=== PATIENT | female | born 1955 | race American Indian/Alaskan Native ===

== ENCOUNTER 2017-03-09 09:46 | Outpatient (CLI) | payer OTHER, MEDICARE ==
[2017-03-09 10:11] LABS: Hematocrit 37.3 % (30.3-42.9); Hemoglobin 12.5 gm/dl (10.1-14.3); Mean Corpuscular HGB Conc 34 % (30-34); Mean Corpuscular Hemoglobin 31 pg (28-32); Mean Corpuscular Volume 93 fl (79-97); Platelet Count 326 K/mm3 (140-440); Red Blood Count 3.99 M/mm3 (3.65-5.03); Red Cell Distribution Width 15.7 % (13.2-15.2); White Blood Count 8.2 K/mm3 (4.5-11.0)
[2017-03-09 10:37] LABS: Alanine Aminotransferase 10 units/L (7-56); Alkaline Phosphatase 90 units/L (35-129); Anion Gap 20 mmol/L; BUN/Creatinine Ratio 21.25; Bilirubin,Total 0.2 mg/dL (0.1-1.2); Blood Urea Nitrogen 17 mg/dL (7-17); Calcium 9.4 mg/dL (8.4-10.2); Carbon Dioxide 24 mmol/L (22-30); Chloride 100.7 mmol/L (98-107); Cholesterol 231 mg/dL (50-199); Glucose 139 mg/dL (65-100); HDL Cholesterol 51 mg/dL (40-59); LDL Cholesterol,Direct 128 mg/dL (50-130); Sodium 142 mmol/L (137-145); Triglycerides 263 mg/dL (2-149)
== END 2017-03-09 09:47 | disposition home or self-care (01) ==
LOC: LAB 09:46
PROVIDERS: ATTEND Specialist
DX: K30 Functional dyspepsia (principal)
CPT/HCPCS: 36415; 80053; 80061; 85027

== ENCOUNTER 2017-03-21 06:04 | Day surgery (SDC) | payer OTHER, MEDICARE ==
[2017-03-21] MEDS ORDERED: WATER FOR IRRIG STERILE IR ONE (07:15)
--- NOTE | 2017-03-21 07:51 | Anesthesia Day of Surgery ---
Anesthesia Day of Surgery - Day of Surgery Patient Examined: Yes Patient H&P Reviewed: Yes Patient is NPO: Yes
--- NOTE | 2017-03-21 07:51 | Anesthesia Consultation ---
Anesthesia Consult and Med Hx Date of service: 03/21/17 - Airway Anesthetic Teeth Evaluation: Good, Dentures (upper) Mallampati Class: Class II Intubation Access Assessment: Probably Good - Pulmonary Exam CTA: Yes - Cardiac Exam Cardiac Exam: RRR - Pre-Operative Health Status ASA Pre-Surgery Classification: ASA3 Proposed Anesthetic Plan: MAC - Pulmonary Hx Sleep Apnea: Yes (CPAP. Sleeping raised works better.) - Cardiovascular System Hx Hypertension: Yes - Central Nervous System Hx Back Pain: Yes (lower) - Gastrointestinal Hx Gastroesophageal Reflux Disease: Yes (controled with meds.)
[2017-03-21] MEDS ORDERED: NACL 0.9% 1000 ML 1,000 ML IV SCH (08:00)
[2017-03-21] MEDS ORDERED: DIPRIVAN 10 MG/ML IV ONE ×3 (08:17)
--- NOTE | 2017-03-21 09:10 | Operative Report ---
Operative Report Operative Report: DATE 03/21/2017 SURGERY: Upper endoscopy. SURGEON: Rodolfo Fleming M.D. NOZZLE TENDER: Seth Solis MD PRE OP DX: dyspepsia POST OP DX: 1. medium size hiatal hernia 2. gastric polyp (proximal body/lesser curve) TYPE OF ANESTHESIA: MAC. ESTIMATED BLOOD LOSS: None. COMPLICATIONS: None. SPECIMENS REMOVED: None. FINDINGS: 1. medium size hiatal hernia. 2. gastric polyp 3. Otherwise, normal esophagus, stomach and first portion of duodenum. INDICATIONS:INDICATION FOR PROCEDURE: Patient is a 61-year-old female with a long history of morbid obesity. She is planned to have a weight loss procedure and is here for preoperative planning EGD. PROCEDURE DETAILS: After consent was reviewed, patient was taken back to the operating room where patient was placed in the left lateral decubitus position and a bite block was placed in the mouth. After a time-out was called, MAC anesthesia was initiated. I then passed the endoscope into her oropharynx, into her esophagus, visualized the entire esophagus, which was all within normal limits. I then visualized the stomach and the first portion of the duodenum and there were no abnormalities I could clearly visualize. I then retroflexed the scope in the stomach and visualized the hiatus and I could see a medium size hiatal hernia. I then noticed a 5mm gastric polyp over the proximal body following the lesser curvature. Cold forceps biopsy was taken. I then desufflated the stomach and removed the endoscope. Patient tolerated procedure well and was transferred to recovery room in good and stable condition.
--- NOTE | 2017-03-21 09:12 | Discharge Summary ---
Providers - Providers Date of discharge: 03/21/17 Attending physician: JENN REYEZ Hospitalization Reason for admission: outpateint EGD Condition: Stable Procedures: EGD Disposition: DISCHARGED TO HOME OR SELFCARE Core Measure Documentation - Palliative Care Palliative Care/ Comfort Measures: Not Applicable - Core Measures Any of the following diagnoses?: none Exam - Physical Exam Narrative exam: unchanged from preop - Constitutional Vitals: Temp Pulse Resp BP Pulse Ox 97.7 F 81 13 124/79 100 03/21/17 09:00 03/21/17 09:00 03/21/17 09:00 03/21/17 09:00 03/21/17 09:00 Plan Activity: advance as tolerated Diet: low carbohydrate Follow up with: RAY BA [Other] - 7 Days
[2017-03-21 09:26] VITALS: BP 130/91
--- NOTE | 2017-03-21 15:06 | Post Anesthesia Evaluation ---
- Post Anesthesia Evaluation Patient Participated: Yes Airway Patent: Yes Stable Respiratory Function: Yes Nausea/Vomiting: No Temp > 96.8F: Yes Pain Manageable: Yes Adequeate Hydration: Yes Anesthesia Complications: No Block Receding Appropriately: Not Applicable Patient on Ventilator: No
== END 2017-03-21 06:05 | disposition home or self-care (01) ==
LOC: GIO 06:04
PROVIDERS: ATTEND Specialist
DX: D13.1 Benign neoplasm of stomach (principal); K44.9 Diaphragmatic hernia without obstruction or gangrene; K21.9 Gastro-esophageal reflux disease without esophagitis; I10 Essential (primary) hypertension; G47.33 Obstructive sleep apnea (adult) (pediatric); E78.00 Pure hypercholesterolemia, unspecified; M19.90 Unspecified osteoarthritis, unspecified site; E66.01 Morbid (severe) obesity due to excess calories; Z68.37 Body mass index [BMI] 37.0-37.9, adult; Z90.710 Acquired absence of both cervix and uterus; Z98.51 Tubal ligation status; Z79.899 Other long term (current) drug therapy
CPT/HCPCS: 43239; 88305; 88342; J2704; J7030

== ENCOUNTER 2017-03-28 09:45 | Inpatient (IN) | payer OTHER, MEDICARE ==
--- NOTE | 2017-03-23 11:20 | Anesthesia Consultation ---
Anesthesia Consult and Med Hx Date of service: 03/23/17 (Scheduled for Gastric Lap sleeve on 03/27/[address] Fleming) - Airway Anesthetic Teeth Evaluation: Dentures (upper) ROM Head & Neck: Adequate Mental/Hyoid Distance: Adequate Mallampati Class: Class II Intubation Access Assessment: Probably Good - Pulmonary Exam CTA: Yes - Cardiac Exam Cardiac Exam: RRR - Pre-Operative Health Status ASA Pre-Surgery Classification: ASA3 Proposed Anesthetic Plan: General - Pre-Anesthesia Comment Pre-Anesthesia Comments: No previous anesthesia complications. - Pulmonary Hx Asthma: No Hx Sleep Apnea: Yes (2016, unable to tolerate CPAP) - Cardiovascular System Hx Hypertension: Yes (1987) Hx Coronary Artery Disease: No - Central Nervous System Hx Seizures: No - Gastrointestinal Hx Gastroesophageal Reflux Disease: Yes (mild, food related) - Endocrine Hx Non-Insulin Dependent Diabetes: No - Other Systems Hx Obesity: Yes (BMI= 37)
[~2017-03-28 09:45] MED LIST: ANCEF/STERILE WATER 2 GM/20 ML 2 GM/20 ML SYRINGE IV NR; APRESOLINE IV PRN; FLAGYL 500 MG/100 ML 500 MG/100 ML BAG IV NR; LACTATED RINGERS 1,000 ML IV SCH; LOVENOX SUB-Q NR; MYLICON PO PRN; PEPCID IV NR; PEPCID PO NR; REGLAN IV PRN; TRANSDERM-SCOP TD SCH; VERSED IV NR
[2017-03-28] MEDS ORDERED: DILAUDID IV PRN ×2 (10:00→19:09)
[2017-03-28] MEDS ORDERED: NACL BACTERIOSTATIC INFILTRATI ONE (13:56)
[2017-03-28] MEDS: LACTATED RINGERS 1,000 ML IV SCH (14:10)
[2017-03-28] MEDS ORDERED: FLAGYL 500 MG/100 ML 500 MG/100 ML BAG IV NR (15:00)
[2017-03-28] MEDS ORDERED: XYLOCAINE 1% 20 mL ONE ×2 (15:26→17:13)
[2017-03-28] MEDS ORDERED: MARCAINE-EPI 0.5%-1:200,000 INFILTRATI ONE ×3 (15:26→18:01)
[2017-03-28 17:06] LABS: Bilirubin,Urine NEG (Negative); Blood,Urine NEG (Negative); Ketones,Urine NEG (Negative); Leukocyte Esterase,Urine NEG (Negative); Nitrite,Urine NEG (Negative); Protein,Urine <15 mg/dL mg/dL (Negative); Urobilinogen,Urine < 2.0 mg/dL (<2.0); WBC,Urine < 1.0 /HPF (0.0-6.0)
[2017-03-28] MEDS ORDERED: DIPRIVAN 10 MG/ML IV ONE (17:09)
[2017-03-28] MEDS ORDERED: SUBLIMAZE ONE (17:10)
[2017-03-28] MEDS ORDERED: ZEMURON IV ONE (17:46)
[2017-03-28] MEDS ORDERED: QUELICIN ONE (17:46)
[2017-03-28] MEDS ORDERED: XYLOCAINE MPF 2% ONE (17:46)
[2017-03-28] MEDS ORDERED: DECADRON ONE (17:46)
[2017-03-28] MEDS ORDERED: NACL 0.9% IR ONE ×2 (18:01)
[2017-03-28] MEDS ORDERED: XYLOCAINE 1% 20 mL INFILTRATI ONE (18:01)
[2017-03-28] MEDS ORDERED: ROBINUL ONE (18:17)
[2017-03-28] MEDS ORDERED: ZOFRAN ONE ×2 (18:17→19:19)
[2017-03-28] MEDS ORDERED: NEO SYNEPHRINE/NS Syringe(OR USE) IV ONE (18:30)
[2017-03-28] MEDS ORDERED: DILAUDID ONE (18:51)
--- NOTE | 2017-03-28 19:08 | Operative Report ---
Operative Report Operative Report: Operative Report DATE OF PROCEDURE: 03/28/2017 PREOPERATIVE DIAGNOSES: Morbid obesity, hiatal hernia POSTOPERATIVE DIAGNOSES: 1.same as pre-op SURGEON: Rodolfo Fleming MD SPECIAL EDUCATION TEACHERS: Adama Palma [facility] PROCEDURE: 1. laparoscopic sleeve gastrectomy 2. laparoscopic hiatal hernia repair ANESTHESIA: General. ESTIMATED BLOOD LOSS: <5 mL. COMPLICATIONS: None. SPECIMEN: Partial gastrectomy. FINDINGS: 1. hiatal hernia INDICATION FOR PROCEDURE: Patient is a 38-year-old female with a long history of morbid obesity. 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 She is here today for sleeve gastrectomy. PROCEDURE IN DETAIL: After consent was reviewed, patient was taken back to the operating room, where patient was placed supine on the bed with both arms out. The patient's legs were doubly strapped to the bed. Patient had a foot board in place. Patient had a body warmer placed by anesthesia. Patient was then prepped and draped in normal sterile surgical fashion. After a time-out was called, I made a stab incision in the LUQ and placed a Veress needle through this incision and insufflated the abdomen to 18 mmHg pressure. I then used a 5mm optiview trocar on the RUQ and under direct visualization access the abdominal cavity. No intraabdominal structure was injured. Then we placed 2 5mm LUQ trocars and a 15mm trocat through the umbilicus. Another 5mm trocar was placed subxiphoid I then placed the liver retractor through the subxiphoid port and placed the patient in full reverse Trendelenburg. The right and left crura were skeletonized accentuating a small hiatal hernia. An anterior cruraplasty was perfromed with a figure-of-8 stitch using surgidac suture to reapproximate the crura. I then identified the pylorus and then counted off 6cm from the pylorus. I then used a LigaSure cutting device to enter into the lesser sac. At that point and then I took down the short gastrics all the way up to the left vivian. Then I had anesthesia pass down a 36-Anguillan bougie along the lesser curvature of the stomach. I made sure everything else was out of the abdomen except the bougie. I then created my gastric sleeve using a 60-mm laparoscopic stapler. . The sleeve looked good without any twisting or torsion. I then had anesthesia to remove the bougie. Hemostasis was obtained along the staple line. I then used Tiseel along the entirety of the staple line and some on the liver. I then removed liver grasper and took it off the field. I then removed the stomach through the 15-mm port. I then desufflated the abdomen and removed all port sites. I then closed that fascia with a #1 PDS in a [id number] fashion.. I then closed the incisions with 4-0 Monocryl in subcuticular fashion. I then dressed the wounds with Steristrips, Telfa and Tegaderm. Patient tolerated the procedure well and was transferred to recovery room in good and stable condition.
[2017-03-28] MEDS ORDERED: TORADOL IV PRN (19:09)
[2017-03-28] MEDS ORDERED: ZOFRAN IV PRN (19:28)
[2017-03-28] MEDS: DILAUDID IV PRN ×3 (19:30→20:10)
--- NOTE | 2017-03-28 19:47 | Post Anesthesia Evaluation ---
- Post Anesthesia Evaluation Patient Participated: Yes Airway Patent: Yes Stable Respiratory Function: Yes Temp > 96.8F: Yes Pain Manageable: Yes Adequeate Hydration: Yes Anesthesia Complications: No Block Receding Appropriately: Not Applicable
[2017-03-29] MEDS: LACTATED RINGERS 1,000 ML IV SCH (08:20)
--- NOTE | 2017-03-29 09:17 | Admit Criteria Form ---
Admission Criteria Documentation: AMBULATORY SURGERY EXCEPTION CRITERIA Ambulatory Surgery Exception Criteria ( Place 'X' for any and all applicable criteria): Surgery or procedure performed on ambulatory basis may require inpatient stay for[A] ANY ONE of the following(1)(2)(3)(4)(5)(6)(7)(8)(9): [X] I. A preoperative situation, condition, or finding that warrants inpatient stay as indicated by ANY ONE of the following: [] a) Inpatient care needed because of severity of a disease or condition rather than the surgery (eg, severe cardiac or respiratory disease, severe infection) (15) (16 ) (17) (18) [] b) Emergent procedure (eg, angioplasty for acute ischemia)(19) [] c) Complex surgical approach or situation as indicated by ANY ONE of the following(3): [] i) Open approach needed instead of usual endoscopic, transcatheter, or other less invasive procedure [] ii) Difficult approach because of previous operation [] iii) Airway monitoring required after open neck procedures(20)(21) [] iv) Large mass requiring unusually extensive dissection [] v) Additional complicating feature requiring inpatient care (eg, drain management)(22(23): [X] d) Major surgery in a pt with high anesthetic risk as indicated by ANY ONE of the following (2)(3)(5)(7)(8): [X] i) ASA risk class III or higher (severe systemic disease impairing function) [D] [] ii) Advanced age (eg, older than 85 years)(14)(24) [] iii) Symptomatic heart failure(25) [] iv) Symptomatic asthma or COPD(8)(21) [] v) Morbid obesity with hemodynamic or respiratory problems(20)( 21)(26)(27) [] vi) Obstructive sleep apnea(20)(21) [] vii) Former premature infants who are younger than 60 weeks [] viii) High risk for severe postoperative abnormalities (eg, severe postoperative hypocalcemia after parathyroidectomy for severe hyperparathyroidism)(27)( 28) [] ix) Unstable angina(25) [] e) Drug-related risk requiring inpatient stay as indicated by ANY ONE of the following(5)(10)(14)(32)(33) [] i) Procedure requires discontinuing drugs or other therapy (eg , antiarrhythmic medication, antiseizure medication), which necessitates inpatient observation or treatment.(18)(31) [] ii) Major surgery and high risk drug use as indicated by ANY ONE of the following: [] 1) Active abuse of cocaine or similar drug [] 2) Monoamine oxidase inhibitor use [] 3) Other drug identified as posing risk [] f) Inadequate outpatient care situation as indicated by ANY ONE of the following(5)(10)(14)(32)(33) [] i) Patient lives remote from medical facility and procedure has urgent complication potential, and temporary nearby residence cannot be arranged [] ii) Patient will have postprocedure incapacitation and inadequate assistance at home, or alternative level of care cannot be arranged. [] iii) Patient will have long general anesthesia or procedure side effect resolution time, and competent person to stay with patient on first postoperative night at home or alternative level of care cannot be arranged. []iv) Other inadequate outpatient situation that cannot be handled by other means [] II. A perioperative event, condition, or finding that warrants inpatient stay as indicated by ANY ONE of the following (1)(2)(3): [] a) Inadequate physiologic recovery: cardiovascular, respiratory, or hemodynamic status not normal or near preoperative baseline(18) [] b) Hemodynamic instability [] c) Patient not alert with near normal or baseline mental status [] d) Temperature not normal or as expected and not appropriate for outpatient treatment of condition [] e) Ambulatory or appropriate activity level status not yet achieved post procedure [E](34)(35)(36) [] f) Operative site not appropriate (eg, unexpected or excessive drainage or bleeding) [] g) Postoperative effects not resolved or adequately managed (eg, significant pain or vomiting not appropriate for outpatient or next level of care)(10)(12) [] h) Complicating features requiring inpatient care as indicated by ANY ONE of the following(37): [] i) Severe complications of procedure (eg, bowel injury, airway compromise, vascular injury,severe hemorrhage) [] ii) Extensive (eg, dissection far beyond usual scope of procedure ) or prolonged (eg, 120 minutes beyond usual) surgery needed requiring inpatient postoperative care [] iii) Conversion to an open or complex procedure that requires inpatient care (eg, open vs laparoscopic cholecystectomy, abdominal vs vaginal hysterectomy)(38) [] iv) Comorbid condition or test result identified during or post procedure that requires inpatient care (7) [] v) Malignant hyperthermia(30) [] vi) Other complicating feature requiring inpatient care(22)(23) Inpatient stay may be needed until ALL of the following are present (1)(2)(3)(4) (5)(6)(10)(14)(33)(40): []a) Physiologic recovery: cardiovascular, respiratory, and hemodynamic status normal or near preoperative baseline []b) Hemodynamic stability []c) Patient alert, with near normal or baseline mental status []d) Temperature appropriate: patient afebrile or temperature appropriate for outpt treatment of condition []e) Activity level appropriate: ambulatory or appropriate activity level post procedure []f) Operative site appropriate as indicated by ALL of the following: []i) Site dry or with expected drainage []ii) Any blood noted is as expected for procedure. []g) Postoperative effects resolved or managed as indicated by ALL of the following: []i) Pain management appropriate for outpatient (or next level of) care(10) []ii) Minimal nausea and vomiting: if present, successfully treated with oral medication(12) []iii) Headache, dizziness, or drowsiness (if present) are mild. []h) Voiding status acceptable as indicated by ANY ONE of the following: []i) Voiding spontaneously []ii) No voiding but instructions given for follow-up in 6 to 8 hours []iii) Urinary catheter in place, and instructions given for follow-up []i) Complicating features requiring inpatient care manageable at a lower level of care(37) []j) Comorbid conditions manageable at a lower level of care(37) The original [employer] content created by [employer] has been revised. The portions of the content which have been revised are identified through the use of italic text or in bold, and [facility] [employer] has neither reviewed nor approved the modified material. All other unmodified content is copyright [employer]. Please see references footnoted in the original [employer] edition 2016 Admission Criteria Met: Yes
[2017-03-29] MEDS ORDERED: LOVENOX SUB-Q SCH (10:00)
--- NOTE | 2017-03-29 11:31 | Discharge Summary ---
Providers - Providers Date of Admission: 03/28/17 13:09 Date of discharge: 03/29/17 Attending physician: JENN REYEZ Primary care physician: BUSINESS SYSTEMS MANAGER Hospitalization Reason for admission: post op observation Condition: Stable Disposition: DISCHARGED TO HOME OR SELFCARE Core Measure Documentation - Palliative Care Palliative Care/ Comfort Measures: Not Applicable - Core Measures Any of the following diagnoses?: none Exam - Physical Exam Narrative exam: VSS, AF NAD Heart RRR Lungs CTAL BL Abd Soft, Nondistended, appropriate TTP around wounds Neuro: AAOx3 - Constitutional Vitals: Temp Pulse Resp BP Pulse Ox 98 F 86 18 107/84 98 03/29/17 08:00 03/29/17 08:00 03/29/17 08:00 03/29/17 08:00 03/29/17 08:00 Plan Activity: advance as tolerated Diet: other (bariatric stage 1) Wound: keep clean and dry Special Instructions: no heavy lifting Follow up with: PRIMARY CAREMD [Primary Care Provider] - 7 Days
[2017-03-29 12:13] LABS: Basophils % (Auto) 0.4 % (0.0-1.8); Eosinophils % (Auto) 0.1 % (0.0-4.3); Hematocrit 37.4 % (30.3-42.9); Hemoglobin 12.5 gm/dl (10.1-14.3); Mean Corpuscular HGB Conc 33 % (30-34); Mean Corpuscular Hemoglobin 32 pg (28-32); Mean Corpuscular Volume 94 fl (79-97); Platelet Count 249 K/mm3 (140-440); Red Blood Count 3.97 M/mm3 (3.65-5.03); Red Cell Distribution Width 14.7 % (13.2-15.2); White Blood Count 10.9 K/mm3 (4.5-11.0)
[2017-03-29 13:27] LABS: Alanine Aminotransferase 12 units/L (7-56); Albumin 3.7 g/dL (3.9-5); Albumin/Globulin Ratio 0.9 %; Alkaline Phosphatase 65 units/L (35-129); Anion Gap 25 mmol/L; BUN/Creatinine Ratio 18.57; Blood Urea Nitrogen 13 mg/dL (7-17); Calcium 9.3 mg/dL (8.4-10.2); Carbon Dioxide 19 mmol/L (22-30); Chloride 96.6 mmol/L (98-107); Glucose 111 mg/dL (65-100); Potassium 3.9 mmol/L (3.6-5.0); Sodium 137 mmol/L (137-145); Total Protein 7.7 g/dL (6.3-8.2)
[2017-03-29 13:39] VITALS: BP 121/79
== END 2017-03-29 17:15 | disposition home or self-care (01) | DRG 621 ==
LOC: 3A 13:09 → 2B-SURG 19:54
PROVIDERS: ADMIT Specialist; ATTEND Specialist
PROC: 0DB64Z3 Excision of Stomach, Percutaneous Endoscopic Approach, Vertical (ICD-10-PCS; principal; 2017-03-28)
PROC: 0BQS4ZZ (ICD-10-PCS; 2017-03-28)
PROC: 0BQR4ZZ (ICD-10-PCS; 2017-03-28)
DX: E66.01 Morbid (severe) obesity due to excess calories (principal); G47.30 Sleep apnea, unspecified; I10 Essential (primary) hypertension; K44.9 Diaphragmatic hernia without obstruction or gangrene; K21.9 Gastro-esophageal reflux disease without esophagitis; Z68.37 Body mass index [BMI] 37.0-37.9, adult
CPT/HCPCS: 36415; 80053; 81001; 83735; 85025; 88307; 94760; A4217; C9250; J0330; J0690; J1100; J1170; J1650; J2370; J2405; J2704; J3010; J7120